=== PATIENT | male | born 1990 | race Caucasian/White ===

== ENCOUNTER 2017-09-07 18:06 | Emergency (ER) | payer OTHER ==
--- NOTE | 2017-09-07 19:02 | ER Document Report ---
ED General - General Chief Complaint: Head Injury with LOC Stated Complaint: FALL/VOMITING Time Seen by Provider: 09/07/17 18:57 Notes: 27-year-old male here with complaints of fall approximately 1-2 hours ago. He was at work and there was ice on the floor he states he slipped on the ice falling backwards hitting the back of his head. He did have loss of consciousness for unknown amount of time. Afterwards, he had one episode of vomiting. He feels somewhat dazed with intermittently blurry vision but otherwise denies any numbness tingling weakness. - Related Data Allergies/Adverse Reactions: No Known Allergies Allergy (Verified 09/07/17 18:12) Past Medical History - Social History Smoking Status: Unknown if Ever Smoked Family History: Reviewed & Not Pertinent Review of Systems - Review of Systems Notes: See history of present illness for pertinent positive review of systems; otherwise all review of systems have been reviewed and are negative Physical Exam - Vital signs Vitals: Temp Pulse Resp BP Pulse Ox 98.7 F 83 18 143/84 H 99 09/07/17 18:11 09/07/17 18:11 09/07/17 18:11 09/07/17 18:11 09/07/17 18:11 - Notes Notes: PHYSICAL EXAMINATION: GENERAL: Well-appearing and in no acute distress. HEAD: Atraumatic, normocephalic. EYES: Pupils equal round and reactive to light, extraocular movements intact, sclera anicteric, conjunctiva are normal. ENT: nares patent, oropharynx clear without exudates. Moist mucous membranes. NECK: Normal range of motion, supple without lymphadenopathy LUNGS: CTAB and equal. No wheezes rales or rhonchi. HEART: Regular rate and rhythm without murmurs ABDOMEN: Soft, no tenderness. No facial grimacing/wincing upon palpation. No guarding, no rebound. EXTREMITIES: Normal range of motion, no pitting edema. No cyanosis. NEUROLOGICAL: Cranial nerves grossly intact. Normal sensory/motor exams. Finger to nose intact bilaterally. PSYCH: Normal mood, normal affect. SKIN: Warm, Dry, normal turgor, no rashes or lesions noted Course - Re-evaluation Re-evalutation: 09/07/17 20:15 MEDICAL DECISION MAKING: Concern was for head bleed versus contusion versus postconcussion syndrome Patient's head CT did not show any acute emergency findings and this was discussed with him He was given a dose of Zofran here and will send him out with a prescription for Zofran Return precautions given Patient understands and agrees to the plan of care - Vital Signs Vital signs: Temp Pulse Resp BP Pulse Ox 98.7 F 83 18 143/84 H 99 09/07/17 18:11 09/07/17 18:11 09/07/17 18:11 09/07/17 18:11 09/07/17 18:11 Discharge - Discharge Clinical Impression: Head injury, closed, with brief LOC Condition: Good Disposition: HOME, SELF-CARE Additional Instructions: You were seen in the emergency department at [facility]. The head CT not showing emergency findings. Use the prescribed nausea/vomiting medication as needed. Please followup with your primary physician in the next few days for further management/evaluation. Please return to the emergency department for worsening of symptoms or any symptom that you deem to be concerning or life-threatening. Thank you for allowing us to be part of your care. Prescriptions: Ondansetron [Zofran Odt 4 mg Tablet] 1 tab PO Q4H PRN #15 tab.rapdis PRN Reason: For Nausea/Vomiting
[2017-09-07] MEDS ORDERED: ONDANSETRON 4 MG TAB.RAPDIS PO ONE (19:08)
--- NOTE | 2017-09-07 19:42 | RADIOLOGY REPORT (SQ) ---
EXAM DESCRIPTION: CT HEAD WITHOUT COMPLETED DATE/TIME: 09/07/2017 7:20 pm REASON FOR STUDY: fall, LOC, vomiting; eval head bleed COMPARISON: None. TECHNIQUE: Axial images acquired through the brain without intravenous contrast. Images reviewed wi th bone, brain and subdural windows. Images stored on PACS. All CT scanners at this facility use dose modulation, iterative reconstruction, and/or weight based d osing when appropriate to reduce radiation dose to as low as reasonably achievable (ALARA). [facility]: Dose Right [facility]: CareDose [facility]: Dose Right [facility]: Teradose 4D [facility]: Smart [place] RADIATION DOSE: CT Rad equipment meets quality standard of care and radiation dose reduction techniq ues were employed. CTDIvol: 53.2 mGy. DLP: 1070 mGy-cm. mGy. LIMITATIONS: None. FINDINGS: VENTRICLES: Normal size and contour. CEREBRUM: No masses. No hemorrhage. No midline shift. No evidence for acute infarction. Normal gra y/white matter differentiation. No areas of low density in the white matter. CEREBELLUM: No masses. No hemorrhage. No alteration of density. No evidence for acute infarction. EXTRAAXIAL SPACES: No fluid collections. No masses. ORBITS AND GLOBE: No intra- or extraconal masses. Normal contour of globe without masses. CALVARIUM: No fracture. PARANASAL SINUSES: No fluid or mucosal thickening. SOFT TISSUES: No mass or hematoma. OTHER: No other significant finding. IMPRESSION: No acute intracranial findings. EVIDENCE OF ACUTE STROKE: NO. COMMENT: Quality ID # [id number]: Final reports with documentation of one or more dose reduction techniques (e.g., Automated exposure control, adjustment of the mA and/or kV according to patient size, use of iterative reconstruction technique) TECHNICAL DOCUMENTATION: JOB ID: [id number] [place]-72 2010 [employer]- All Rights Reserved Reading location - IP/workstation name: [employer]
[2017-09-07 20:31] VITALS: BP 125/75
== END 2017-09-07 20:25 | disposition home or self-care (01) ==
LOC: ER 18:06
DX: S09.90XA Unspecified injury of head, initial encounter (principal); R55 Syncope and collapse; R11.10 Vomiting, unspecified; W00.0XXA Fall on same level due to ice and snow, initial encounter
CPT/HCPCS: 99284; 70450; S0119